=== PATIENT | male | born 1965 | race Caucasian/White ===

== ENCOUNTER 2017-08-22 21:26 | Emergency (ER) | payer SELFPAY ==
[~2017-08-22] VITALS: Ht 175.3 cm; Wt 93.0 kg
[2017-08-22 21:35] VITALS: BP 141/93
== END 2017-08-22 22:04 | disposition home or self-care (01) ==
LOC: ER 21:26
DX: R41.82 Altered mental status, unspecified (principal); F14.10 Cocaine abuse, uncomplicated
CPT/HCPCS: 99283; Z7610